=== PATIENT | female | born 1955 | race Caucasian/White ===

== ENCOUNTER 2024-09-29 07:51 | Outpatient (CLI) | payer MEDICARE, BC, SELFPAY | END 2024-09-29 07:52 | disposition home or self-care (01) | LOC: INJ CL 07:55 | PROVIDERS: PCP Family Medicine; Visit Provider Family Medicine | DX: M54.16 Radiculopathy, lumbar region (principal); M51.369 Other intervertebral disc degeneration, lumbar region without mention of lumbar back pain or lower extremity pain; M47.816 Spondylosis without myelopathy or radiculopathy, lumbar region | CPT/HCPCS: 64483; 64493; J0702; J1100; J2250; J3010; Q9966 ==